=== PATIENT | female | born 1960 | race Hispanic/Latino ===

== ENCOUNTER 2019-03-16 06:53 | Day surgery (SDC) | payer OTHER ==
--- OUTSIDE RECORDS SUMMARY | 2019-03-16 06:56 | XMS REPORT ---
:1960 Author Organization [employer] Care Team Providers Name Role Phone Arline Medina Provider Role Unavailable Allergies No Known Allergies Problems Problem Type Condition Code Onset Dates Condition Status Problem Malaise and fatigue R53.81 Active Problem Asymptomatic menopause Z78.0 Active Problem Encounter for screening fecal Z12.11 Active occult blood testing Problem Encounter for gynecological Z01.419 Active examination without abnormal finding Problem Encounter for general adult medical Z00.00 Active examination without abnormal findings Problem Bilateral leg paresthesia R20.2 Active Problem Hypothyroidism E03.9 Active Problem Breast cancer screening by Z12.31 Active mammogram Problem Aching leg syndrome, 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
[2019-03-16] MEDS ORDERED: Ringers Lactate 1,000 ML IV ONE (07:04)
[2019-03-16] MEDS ORDERED: GLYCOPYRROLATE 0.2 MG/ML SYR ONE (07:36)
[2019-03-16] MEDS ORDERED: PROPOFOL 200 MG/20 ML VIAL IV ONE (07:36)
[2019-03-16] MEDS ORDERED: LIDOCAINE 1% MPF 30 ML VIAL ONE (07:37)
--- NOTE | 2019-03-16 08:36 | ENDO RPT ---
[address], [address] COLONOSCOPY PROCEDURE REPORT EXAM DATE: 03/16/2019 PATIENT NAME: Kimberlee Porter MR #: [id number] BIRTHDATE: 1960 ATTENDING: Lang Arora DR STATUS: outpatient DEMENTIA PROGRAM DIRECTOR: Ramses Swanson RN, Cindy Meléndez, and Alicia Patricia RN INDICATIONS: The patient is a 58 yr old Female here for a colonoscopy due to history of polyps and colon cancer screening PROCEDURE PERFORMED: Colonoscopy with biopsy - cold polypectomy MEDICATIONS: Per Anesthesia. ESTIMATED BLOOD LOSS: None CONSENT: The patient understands the risks and benefits of the procedure and understands that these risks include, but are not limited to: sedation, allergic reaction, infection, perforation and/or bleeding. Alternative means of evaluation and treatment include, among others: physical exam, x-rays, and/or surgical intervention. The patient elects to proceed with this endoscopic procedure. DESCRIPTION OF PROCEDURE: During intra-op preparation period all mechanical medical equipment was checked for proper function. Hand hygiene and appropriate measures for infection prevention was taken. Procedure, possible complications, alternatives including, but not limited to possibility of bleeding, perforation, tear, infection, sepsis, need for surgery, need for blood transfusion, were explained to the patient. After the risks, benefits and alternatives of the procedure were thoroughly explained, Informed consent was verified, confirmed and timeout was successfully executed by the treatment team. The patient was placed in the left lateral position. A digital rectal exam was performed and revealed several skin tags and A digital rectal exam was performed and revealed internal hemorrhoids. After appropriate level of anesthesia, the scope was passed. The [id number] ([id number]) endoscope was introduced through the anus and advanced to the cecum, which was identified by both the appendix and ileocecal valve. The quality of the prep was fair. The instrument was then slowly withdrawn as the colon was fully examined. Scope withdrawal time was 15 minutes. COLON FINDINGS: A small smooth flat polyp was found in the sigmoid colon. A polypectomy was performed with cold forceps. The resection was complete, the polyp tissue was completely retrieved and sent to histology. Moderate diverticulosis was noted in the sigmoid colon. No bleeding was noted from the diverticulosis. Melanosis coli was found throughout the entire examined colon. Moderate sized internal hemorrhoids were found. Retroflexed views revealed no abnormalities. The scope was then completely withdrawn from the patient and the procedure terminated. ADVERSE EVENTS: There were no complications. IMPRESSIONS: 1. Small flat polyp was found in the sigmoid colon; polypectomy was performed with cold forceps 2. Moderate diverticulosis was noted in the sigmoid colon 3. Melanosis coli was found throughout the entire examined colon 4. Moderate sized internal hemorrhoids RECOMMENDATIONS: 1. avoid NSAIDS for 2 weeks 2. await biopsy results 3. follow-up: office 2 week(s) 4. Monitor for any evidence of rectal bleeding. 5. yearly hemoccult starting in 4 years 6. hemorrhoidal hygiene 7. increase dietary water 8. low fiber / diverticular diet RECALL: Return in 3 year(s) for Colonoscopy, pending biopsy results. Suboptimal prep, polyp Lang Arora DR eSigned: aLng Arora DR 03/16/2019 8:35 AM cc: CPT CODES: ICD9 CODES: PATIENT NAME: Kimberlee Porter MR#: [id number]
[2019-03-16 09:23] VITALS: BP 118/53; TEMP 97; O2SAT 100
== END 2019-03-16 09:47 | disposition home or self-care (01) ==
LOC: OR 06:53
PROVIDERS: ATTEND Surgery
PROC: 0DBN8ZX Excision of Sigmoid Colon, Via Natural or Artificial Opening Endoscopic, Diagnostic (ICD-10-PCS; principal; 2019-03-16 08:00)
DX: Z12.11 Encounter for screening for malignant neoplasm of colon (principal); K63.5 Polyp of colon; K57.30 Diverticulosis of large intestine without perforation or abscess without bleeding; K64.8 Other hemorrhoids; E07.9 Disorder of thyroid, unspecified; Z86.010 Personal history of colon polyps
CPT/HCPCS: 45380; 88305; J2704; J7120